=== PATIENT | female | born 1960 | race Hispanic/Latino ===

== ENCOUNTER 2017-10-28 17:59 | Inpatient (IN) | payer BC ==
[~2017-10-28] VITALS: Ht 144.8 cm; Wt 66.7 kg
[2017-10-28 04:49] VITALS: BP 108/62
[2017-10-28] MEDS ORDERED: ASPIRIN 81 MG CHEW TAB PO ONE (18:15)
[2017-10-28 19:11] LABS: BASOPHILS % 0.3 % (0.0-1.0); EOSINOPHILS # (AUTO) 0.4 (0.0-0.4); EOSINOPHILS % 3.5 % (0.0-6.0); HEMATOCRIT 38.8 % (34.2-44.1); HEMOGLOBIN 13.3 g/dL (12.0-16.0); LYMPHOCYTES # (AUTO) 3.1 (1.0-3.2); LYMPHOCYTES % 29.8 % (18.0-39.1); MEAN CORPUSCULAR HEMOGLOBIN 32.1 pg (28-32); MEAN CORPUSCULAR HGB CONC 34.3 g/dL (31-35); MEAN CORPUSCULAR VOLUME 93.7 fL (81-99); MONOCYTES # (AUTO) 0.6 (0.2-0.8); MONOCYTES % 5.6 % (4.4-11.3); NEUTROPHILS # (AUTO) 6.3 (2.1-6.9); NEUTROPHILS % 60.3 % (38.7-80.0); PLATELET COUNT 223 x10e3/uL (140-360); RED BLOOD COUNT 4.14 x10e6/uL (3.6-5.1); RED CELL DISTRIBUTION WIDTH 12.8 % (11.7-14.4)
[2017-10-28 19:13] LABS: BILIRUBIN,URINE NEGATIVE (NEGATIVE); CLARITY,URINE SL CLOUDY (CLEAR); COLOR,URINE YELLOW (YELLOW); KETONES,URINE NEGATIVE (NEGATIVE); LEUKOCYTE ESTERASE ,URINE NEGATIVE (NEGATIVE); NITRITE,URINE NEGATIVE (NEGATIVE); PROTEIN,URINE DIPSTICK NEGATIVE (NEGATIVE); URINE UROBILINOGEN 0.2 mg/dL (0.2 - 1)
[2017-10-28 19:20] LABS: INR 1.01; PARTIAL THROMBOPLASTIN TIME 26.6 seconds (23.8-35.5); PROTHROMBIN TIME 12.5 seconds (11.9-14.5)
[2017-10-28 19:24] LABS: BACTERIA,URINE MODERATE /HPF; EPITHELIAL CELLS,URINE MANY /LPF; MUCUS,URINE FEW (RARE); RBC,URINE 0-5 /HPF (0-5)
[2017-10-28 19:27] LABS: ALANINE AMINOTRANSFERASE 21 IU/L (0-55); ALBUMIN 3.8 g/dL (3.5-5.0); ALKALINE PHOSPHATASE 76 IU/L (40-150); ANION GAP 14.3 mmol/L (8-16); BLOOD UREA NITROGEN 17 mg/dL (7-26); BUN/CREATININE RATIO 21 (6-25); CALCIUM 9.9 mg/dL (8.4-10.2); CARBON DIOXIDE 24 mmol/L (22-29); CHLORIDE 103 mmol/L (98-107); CREATINE KINASE 90 IU/L (29-168); EST GLOMERULAR FILTRATION RATE > 60 ML/MIN (60-); GLUCOSE 116 mg/dL (74-118); POTASSIUM 3.3 mmol/L (3.5-5.1); SODIUM 138 mmol/L (136-145)
--- NOTE | 2017-10-28 19:45 | Diagnostic Imaging Report ---
EXAMINATION: Head CT HISTORY: Headache in the back of the head COMPARISON: None. TECHNIQUE: Multidetector axial images were obtained without contrast from the foramen magnum to the vertex . The images were reconstructed using brain and bone algorithms. Thin section brain images were reformatted into coronal and sagittal planes. Image quality: Motion/streaking artifact limits the evaluation of the skull base and posterior cranial fossa. Dose modulation, iterative reconstruction, and/or weight based adjustment of the mA/kV was utilized to reduce the radiation dose to as low as reasonably achievable. FINDINGS: Parenchyma: 1. Few scattered mostly juxta cortical white matter hypodensities, most likely nonspecific chronic microvascular ischemic changes. Likely artifactual ill-defined linear hypodensity in the bilateral posterior parieto-occipital regions, only seen on axial plane. 2. No mass or hemorrhage. No CT evidence of acute territorial vascular insult. Extra-axial spaces:No abnormal density. No extra-axial fluid collections Brain volume: Normal for age. Ventricles: No hydrocephalus or displacement. Arteries: No density suggestive of thrombus. Dural sinuses: No abnormal density. Extra-axial spaces: No abnormal density. Foramen magnum: No mass, Chiari malformation, or basilar invagination. Sella: No obvious mass. Paranasal/mastoid sinuses: Imaged portions unremarkable. Skull/Scalp: No lytic or blastic lesions. No fractures. IMPRESSION: 1. No acute intracranial abnormalities. 2. Mild chronic microvascular ischemic changes. Signed by: Dr. Karlee Quintanilla M.D. on 10/28/2017 7:41 PM
--- NOTE | 2017-10-28 19:51 | Diagnostic Imaging Report ---
EXAMINATION: CHEST SINGLE (PORTABLE) COMPARISON: None INDICATION: Bradycardia, hypoxia DISCUSSION: Frontal view of the chest obtained at 1931 hours. HEART AND MEDIASTINUM: The cardiomediastinal silhouette is unremarkable. LINES: None. LUNGS: The lungs are well inflated and clear. No pneumonia or pulmonary edema. PLEURA: No pleural effusion or pneumothorax. BONES AND SOFT TISSUES: No focal osseous lesion. The soft tissues are normal. IMPRESSION: No acute cardiopulmonary disease. Signed by: Dr. Yasmin Champagne MD on 10/28/2017 7:48 PM
--- NOTE | 2017-10-28 20:07 | Diagnostic Imaging Report ---
Shoulder 2 views CPT code: 80414 Indication:Bradycardia, hypoxia Comparison: Chest x-ray 1931 hours. Findings: 2 views of the left shoulder were obtained. Bones are normally aligned. No fractures are identified. No focal osseous lesions. Visualized chest is unremarkable. IMPRESSION: No acute findings. Signed by: Dr. Yasmin Champagne MD on 10/28/2017 8:04 PM
[2017-10-28] MEDS ORDERED: POTASSIUM CHLORIDE 20 MEQ TAB CR PO STA (20:12)
[2017-10-28] MEDS ORDERED: SODIUM CHLORIDE FLUSH 10 ML SYR INJ PRN (20:15)
[2017-10-28 20:37] LABS: THYROID STIMULATING HORMONE 2.553 uIU/mL (0.350-4.940)
[2017-10-28 21:00] VITALS: BP 112/63
[2017-10-28 22:07] VITALS: BP 112/63
[2017-10-28 23:41] VITALS: BP 109/60
[2017-10-29] VITALS (15 sets, daily range): BP systolic 101–119; BP diastolic 59–82
[2017-10-29] MEDS ORDERED: ESCITALOPRAM OX10 MG PO (03:36)
[2017-10-29] MEDS: ONDANSETRON HCL INJ 2 MG/ML VIAL IV PRN ×2 (04:01→20:47)
[2017-10-29 04:32] LABS: ALANINE AMINOTRANSFERASE 18 IU/L (0-55); ALBUMIN 3.5 g/dL (3.5-5.0); ALKALINE PHOSPHATASE 72 IU/L (40-150); BLOOD UREA NITROGEN 17 mg/dL (7-26); BUN/CREATININE RATIO 23 (6-25); CALCIUM 9.5 mg/dL (8.4-10.2); CARBON DIOXIDE 21 mmol/L (22-29); CHLORIDE 106 mmol/L (98-107); CREATININE, SERUM 0.74 mg/dL (0.57-1.11); EST GLOMERULAR FILTRATION RATE > 60 ML/MIN (60-); GLUCOSE 115 mg/dL (74-118); SODIUM 136 mmol/L (136-145)
[2017-10-29 04:44] LABS: CREATINE KINASE 71 IU/L (29-168)
[2017-10-29] MEDS: FAMOTIDINE 20 MG TAB PO SCH ×2 (05:15→17:50)
[2017-10-29 05:26] LABS: BASOPHILS % 0.3 % (0.0-1.0); EOSINOPHILS # (AUTO) 0.4 (0.0-0.4); EOSINOPHILS % 5.7 % (0.0-6.0); HEMATOCRIT 36.6 % (34.2-44.1); HEMOGLOBIN 12.7 g/dL (12.0-16.0); LYMPHOCYTES # (AUTO) 2.9 (1.0-3.2); LYMPHOCYTES % 37.6 % (18.0-39.1); MEAN CORPUSCULAR HEMOGLOBIN 32.2 pg (28-32); MEAN CORPUSCULAR HGB CONC 34.7 g/dL (31-35); MEAN CORPUSCULAR VOLUME 92.9 fL (81-99); MONOCYTES # (AUTO) 0.6 (0.2-0.8); MONOCYTES % 8.1 % (4.4-11.3); NEUTROPHILS # (AUTO) 3.6 (2.1-6.9); NEUTROPHILS % 47.9 % (38.7-80.0); PLATELET COUNT 221 x10e3/uL (140-360); RED BLOOD COUNT 3.94 x10e6/uL (3.6-5.1); RED CELL DISTRIBUTION WIDTH 13.1 % (11.7-14.4)
[2017-10-29] MEDS ORDERED: ACETAMINOPHEN 325 MG TAB PO PRN (05:45)
[2017-10-29] MEDS ORDERED: FAMOTIDINE 20 MG TAB ONE (05:47)
[2017-10-29] MEDS ORDERED: ACETAMINOPHEN 325 MG TAB ONE (05:48)
[2017-10-29] MEDS ORDERED: ATROPINE SULFATE 0.1 MG/ML 10ML SYR ONE (06:10)
[2017-10-29] MEDS ORDERED: ATROPINE SULFATE 1 MG/ML VIAL IV ONE ×2 (06:15→14:30)
[2017-10-29] MEDS: ASPIRIN 81 MG ENTERIC COATED PO SCH (09:45)
[2017-10-29 12:34] LABS: CREATINE KINASE 63 IU/L (29-168)
[2017-10-29] MEDS ORDERED: ATROPINE SULFATE 1 MG/ML VIAL IV PRN (16:30)
--- NOTE | 2017-10-29 22:57 | Consultation ---
DATE OF CONSULTATION: October 29, 2017 REASON FOR CONSULT: Syncope, bradycardia. HISTORY OF PRESENT ILLNESS: This is a 57-year-old woman with no significant medical history, who has had episodes of dizziness and near-syncope. She was evaluated for bradycardia. She states she underwent echocardiogram and workup about 3-4 months ago and they told her everything was fine. However, she states her heart rate is usually in the 50s. Recently, has become more weak and dizzy over the last 3 weeks up until this morning, when she woke up and then passed out. She was out for about 2-3 seconds. She woke up without any neurological deficit. She was brought into the ER. The heart rate was found in the 30s. She has been in sinus bradycardia. Heart rate average 40, goes up to 50, 55, and then drops to 30, still sinus. Patient states she suffers from chronic vertigo and has been refractory to her current medical therapy. She is currently feeling dizzy; however, feels slightly better than this morning. She has required atropine several times during this admission and she does not take any AV node blocking agents. REVIEW OF SYSTEMS CONSTITUTIONAL: As per HPI. CARDIOVASCULAR: As per HPI. RESPIRATORY: Negative. GASTROINTESTINAL: Negative. GENITOURINARY: Negative. MUSCULOSKELETAL: Negative. EYES: Negative. ENT: Negative. ALLERGY/IMMUNOLOGY: Negative. PSYCHIATRIC: Negative. PAST MEDICAL HISTORY: Unremarkable. SURGICAL HISTORY: Negative. SOCIAL HISTORY: No smoking, alcohol or illicit drugs. FAMILY HISTORY: No premature coronary artery disease. PHYSICAL EXAM VITAL SIGNS: Blood pressure 110/60, pulse 40, respiration 20, O2 sats 98%. GENERAL: No acute distress. HEENT: Moist mucous membranes. CARDIOVASCULAR: Regular. RESPIRATORY: Clear. ABDOMEN: Soft, nontender. MUSCULOSKELETAL: 2+ distal pulses. NEUROLOGICAL: No focal deficit. SKIN: No lesions. PSYCHIATRIC: Normal thought process. EKG: Sinus bradycardia. IMPRESSIONS 1. Syncope secondary to significant bradycardia. No reversible causes. 2. Dizziness. RECOMMENDATIONS: DICTATION DISCONTINUED (02:56) Job#: [id number]
[2017-10-30 01:25] VITALS: BP 99/56
[2017-10-30 03:25] VITALS: BP 100/61
[2017-10-30 05:25] VITALS: BP 91/55
[2017-10-30 07:15] VITALS: BP 106/68
[2017-10-30 07:30] VITALS: BP 106/68
[2017-10-30] MEDS: FAMOTIDINE 20 MG TAB PO SCH (07:30)
[2017-10-30] MEDS: ASPIRIN 81 MG ENTERIC COATED PO SCH (08:00)
[2017-10-30 12:06] VITALS: BP 104/65
--- NOTE | 2017-10-30 13:16 | Diagnostic Imaging Report ---
Examination: Single AP view of the chest. COMPARISON: None. INDICATION: Bradycardia DISCUSSION: Lines/tubes: Cardiac pacemaker. Lungs: The lungs are well inflated and clear. No pneumonia or pulmonary edema. Pleura: No pleural effusion or pneumothorax. Heart and mediastinum: The heart and the mediastinum are unremarkable. Bones and soft tissues: No acute bony abnormalities. IMPRESSION: 1. No acute cardiopulmonary abnormalities. Signed by: Dr. Henry Mcleod M.D. on 10/30/2017 1:13 PM
[2017-10-30] MEDS ORDERED: MINOCYCLINE HC100 M1 PO (13:55)
[2017-10-30] MEDS ORDERED: ULTRAM 50MG50 MG PO (13:56)
--- NOTE | 2017-10-30 14:55 | Operative Report ---
DATE OF PROCEDURE: October 30, 2017 REFERRING PHYSICIAN: Dr. Bell PREPROCEDURE DIAGNOSIS: Symptomatic bradycardia with syncope, nonreversible causes. POSTPROCEDURE DIAGNOSIS: Symptomatic bradycardia with syncope, nonreversible causes. ESTIMATED BLOOD LOSS: 5 mL. COMPLICATIONS: None. PROCEDURES PERFORMED 1. Dual-chamber pacemaker placement. 2. Moderate sedation. ANESTHESIA: Moderate conscious sedation was provided under my direct supervision by sedation-trained nurse. Sedation approximate time 30 minutes with Versed and fentanyl. There were no complications. See sedation report for details. DESCRIPTION OF PROCEDURE: After informed consent was obtained, the patient was brought to the electrophysiology laboratory in a fasting, nonsedated state. The area over her chest was prepped and draped in the usual sterile fashion. Moderate sedation and prophylactic antibiotic were given. One percent lidocaine was used as local anesthetic. A 3-cm skin incision was made in the left subclavicular area. Electrocautery and sharp and blunt dissection were used to reach the muscular fascia, and a pocket was created for eventual implantation of the device. Vascular access was obtained times 2 in the left axillary vein using the modified Seldinger technique under fluoroscopic guidance. Two 6-Bengali sheaths were placed. The ventricular lead was advanced to the RV apex. R wave 5.6, pacing 0.5 at 0.5, impedance 900. Atrial lead to the right atrial appendage. P wave 5, pacing 0.7 at 0.5, impedance 761. The sheaths were removed from the body. The leads were secured to the fascia using #0 silk. The pocket was irrigated with antibiotic solution using the pulse principal engineer. Hemostasis was meticulous. Leads were connected to the device. The entire pacemaker system was placed in the pocket. The incision was closed using Vicryl and Dermabond. The patient tolerated the procedure well. The procedure was deemed complete. SUMMARY OF HARDWARE IMPLANTED: The new pacemaker is [employer], model number [id number], [id number]. The atrial lead is [employer] [id number], [id number]. The ventricular lead is [employer] [id number], [id number]. IMPRESSION: Successful dual-chamber pacemaker implant via left axillary vein. PLAN 1. Routine postop monitoring on telemetry bed. 2. Chest x-ray. 3. The patient can be discharged later today after bed rest is complete. Follow up in 2 weeks. Job#: [id number]
== END 2017-10-30 15:53 | disposition home or self-care (01) | DRG 243 ==
LOC: ER 17:59 → ERHOLD 20:39 → IMCU 21:40
PROVIDERS: ADMIT Internal Medicine; ATTEND Internal Medicine
PROC: 0JH606Z Insertion of Pacemaker, Dual Chamber into Chest Subcutaneous Tissue and Fascia, Open Approach (ICD-10-PCS; principal; 2017-10-28)
PROC: 02H63JZ Insertion of Pacemaker Lead into Right Atrium, Percutaneous Approach (ICD-10-PCS; 2017-10-28)
PROC: 02HK3JZ Insertion of Pacemaker Lead into Right Ventricle, Percutaneous Approach (ICD-10-PCS; 2017-10-28)
DX: R00.1 Bradycardia, unspecified (principal); E87.2 Acidosis; E78.5 Hyperlipidemia, unspecified; K76.0 Fatty (change of) liver, not elsewhere classified; E87.6 Hypokalemia
CPT/HCPCS: 33208; 36415; 70450; 71045; 80053; 81001; 82550; 82553; 83735; 84436; 84443; 84479; 84484; 85025; 85610; 85730; 87086; 93005; 93306; 93880; 97139; 99284; C1898; J0461; J2405